=== PATIENT | female | born 1940 | race Caucasian/White ===

== ENCOUNTER 2018-12-13 12:37 | Emergency (ER) | payer MEDICARE, BC ==
[2018-12-13 13:10] VITALS: BP 162/79
[2018-12-13] MEDS ORDERED: Lidocaine 1% 10 ML MDV INJECT ONE (13:38)
--- NOTE | 2018-12-13 13:46 | EDM.PDOC ---
ED HPI GENERAL MEDICAL PROBLEM - General Chief Complaint: General Stated Complaint: RIGHT KNEE PAIN--NO INJURY Time Seen by Provider: 12/13/18 13:00 Source of Information: Reports: Patient History Limitations: Reports: No Limitations - History of Present Illness INITIAL COMMENTS - FREE TEXT/NARRATIVE: 78-year-old female presents emergency room with complaints of difficulty with ambulation due to right knee pain and swelling. Patient states that they had water in the basement last week and they've been working getting things move around as well as removing the water in the basement. They've been using pockets water de Johnson out and going up and down stairs. She's no some increased pain discomfort over the knee and lasted several days and today reports almost inability to weight-bear because she is having some much discomfort. She denies any radicular pain down her leg or her low back pain. She is unable to take any NSAIDs due to aspirin allergy which causes swelling around her face and lips. He 's been taking some Tylenol without relief. She denies any prior history of knee difficulties. She reports no history of gout or other arthralgic complaints. No fever or chills. No redness to the knee. And no history of trauma. Onset: Gradual Onset Date: 12/11/18 Duration: Day(s):, Getting Worse Location: Reports: Lower Extremity, Right Quality: Reports: Ache Severity: Moderate Improves with: Reports: Rest Worsens with: Reports: Movement Context: Reports: Activity Associated Symptoms: Reports: No Other Symptoms Treatments [employer]: Reports: Acetaminophen right knee Pain Score (Numeric/FACES): 8 - Related Data Allergies Allergy/AdvReac Type Severity Reaction Status Date / Time aspirin Allergy Airway Verified 12/13/18 12:58 Tightness Home Meds: Home Meds Diltiazem HCl [Diltiazem 24Hr Cd] 240 mg PO BEDTIME 12/13/18 [History] Spironolact/Hydrochlorothiazid [Aldactazide 25-25] 1 tab PO DAILY 12/13/18 [ History] Warfarin Sodium [Jantoven] 5 mg PO DAILY 12/13/18 [History] atorvaSTATin [Lipitor] 10 mg PO BEDTIME 12/13/18 [History] metFORMIN [Glucophage XR] 750 mg PO DAILY 12/13/18 [History] metFORMIN [Glucophage XR] 750 mg PO DAILY 12/13/18 [History] Past Medical History HEENT History: Reports: Impaired Vision Cardiovascular History: Reports: Afib Respiratory History: Reports: Sleep Apnea Endocrine/Metabolic History: Reports: Diabetes, Type II - Past Surgical History Female Surgical History: Reports: Hysterectomy Social & Family History - Family History Family Medical History: Noncontributory - Tobacco Use Smoking Status *Q: Never Smoker Second Hand Smoke Exposure: No - Caffeine Use Caffeine Use: Reports: None - Recreational Drug Use Recreational Drug Use: No ED ROS GENERAL - Review of Systems Review Of Systems: ROS reveals no pertinent complaints other than HPI. ED EXAM, GENERAL - Physical Exam Exam: See Below Exam Limited By: No Limitations General Appearance: Alert, WD/WN, No Apparent Distress Ears: Hearing Grossly Normal Throat/Mouth: Normal Voice, No Airway Compromise Head: Atraumatic, Normocephalic Respiratory/Chest: No Respiratory Distress Extremities: No Pedal Edema, Joint Swelling, Limited Range of Motion, Other ( Right knee examination shows her to 1+ effusion. She has tenderness across the joint line both medially and laterally. She is somewhat guarded with knee range of motion. Passively I'm able could her to relax him able to flex and knee to about 125. Reilly's is painful for her. Her calf is soft and nontender. She has no pain with hip range of motion. There is no redness or significant warmth to the knee. Pulses are 2+ distally no pitting pedal edema.). No: Pedal Edema, Increased Warmth, Redness Neurological: Alert, Oriented, Other (She has an antalgic gait on the right) Psychiatric: Normal Affect, Normal Mood Skin Exam: Warm, Dry, Intact, Normal Color, No Rash ED GENERAL MEDICAL PROCEDURES - Additional/Other Procedure(s) Other (Free Text) Procedure(s): aspiration injection right knee. 32cc normal-appearing synovial fluid was aspirated from the right knee. kenlog 80mg, lidocaine 1% 9cc injected. Procedure: Right knee was prepped in a normal sterile fashion with ChloraPrep. Knee was not to size with 9 mL 1% lidocaine using a 22-gauge needle. 18-gauge needle and 20 mL syringe was used to aspirate 32 mL of normal-appearing synovial fluid without difficulty using an 18-gauge needle. Syringes were exchange and using the same needle in the injection site 3 mL of lidocaine and 80 Kenalog was injected without difficulty. Knee was ChloraPrep again and dried with a gauze Band-Aid applied. Place a 6 inch Garrett bandage for compression of the right knee. Course - Vital Signs Last Recorded V/S: Last Vital Signs Temp 98 F 12/13/18 12:45 Pulse 74 12/13/18 12:45 Resp 16 12/13/18 12:45 BP 162/79 H 12/13/18 12:45 Pulse Ox 98 12/13/18 12:45 - Orders/Labs/Meds Meds: Medications Discontinued Medications Generic Name Dose Route Start Last Admin Trade Name Issa PRN Reason Stop Dose Admin Lidocaine HCl 10 ml 12/13/18 13:38 Xylocaine 1% INJECT 12/13/18 13:39 ONETIME ONE Triamcinolone Acetonide 80 mg 12/13/18 13:36 Kenalog-40 INJECT 12/13/18 13:37 ONETIME ONE Departure - Departure Time of Disposition: 14:19 Disposition: Home, Self-Care 01 Condition: Good Clinical Impression: Effusion of right knee joint, Right knee DJD - Discharge Information Instructions: RICE Therapy for Routine Care of Injuries, [id number], Knee Effusion, Knee Injection, Acute Pain, Adult Referrals: Denita Goldstein PA-C [Primary Care Provider] - Forms: ED Department Discharge - Assessment/Plan Assessment:: 1. Painful right knee effusion 2. Right knee DJD Plan: 1. We'll proceed with aspiration injection right knee. Patient will be injected with 80 mg of Kenalog and 3 mL lidocaine. 2. Rest 3. Tylenol for pain 4. Patient ice the knee at 20 minutes at a time 3 times a day 5. Compressive Garrett wrap will be applied patient may take off twice a day. 6. Follow-up with orthopedics in 2 weeks if not better. 7. May benefit the use of a either a cane or walker to help unload the knee joint for the next several days
--- NOTE | 2018-12-13 13:53 | CR ---
[id number] RAD/RAD Knee Right 3V EXAM: 3 VIEWS RIGHT KNEE. INDICATION: RIGHT KNEE PAIN. COMPARISON: None. DISCUSSION: No fracture, dislocation or other acute osseous abnormality. Mild tricompartmental osteoarthritis of the right knee. Additionally there is chondrocalcinosis of the lateral compartment. Moderate right knee joint effusion. Enthesopathic change of the quadriceps tendon insertion. IMPRESSION: 1. No definite acute osseous abnormalities. 2. Moderate right knee joint effusion. 3. Additional chronic changes as above. Jos Cisneros DO 12/13/18 [id number] Thank you for allowing us to participate in the care of your patient.
[2018-12-13] MEDS: Triamcinolone Acetonide 40 MG/ML 10 ML MDV INJECT ONE (14:35)
[2018-12-13] MEDS: Lidocaine 1% 20 ML MDV INJECT ONE (14:35)
== END 2018-12-13 14:25 | disposition home or self-care (01) ==
LOC: KA.ED 12:37
DX: M17.11 Unilateral primary osteoarthritis, right knee (principal); I48.91 Unspecified atrial fibrillation; E11.9 Type 2 diabetes mellitus without complications; Z88.6 Allergy status to analgesic agent; Z79.01 Long term (current) use of anticoagulants; Z79.84 Long term (current) use of oral hypoglycemic drugs; Z90.710 Acquired absence of both cervix and uterus
CPT/HCPCS: 20610; 73562-RT; 99283; 99283-25; J2001; J3301

== ENCOUNTER 2024-05-03 09:02 | Emergency (ER) | payer MEDICARE, BC ==
[2024-05-03] MEDS: Doxycycline Monohydrate 100 MG Cap PO ONE (10:03)
== END 2024-05-03 10:43 | disposition home or self-care (01) ==
LOC: KA.ED 09:02
DX: S91.205A Unspecified open wound of left lesser toe(s) with damage to nail, initial encounter (principal); E11.9 Type 2 diabetes mellitus without complications; I48.91 Unspecified atrial fibrillation; Z88.6 Allergy status to analgesic agent; Z79.01 Long term (current) use of anticoagulants; Z79.84 Long term (current) use of oral hypoglycemic drugs; Z79.899 Other long term (current) drug therapy; Z90.710 Acquired absence of both cervix and uterus; X58.XXXA Exposure to other specified factors, initial encounter
CPT/HCPCS: 73660-T1; 99283; A9270-GY